=== PATIENT | female | born 1980 | race Caucasian/White ===

== ENCOUNTER → 2020-04-01 | Outpatient (CLI) | payer OTHER ==
--- NOTE | 2020-04-01 14:32 | XR ---
EXAMINATION TYPE: XR chest 2V DATE OF EXAM: 04/01/2020 COMPARISON: 04/23/2010 HISTORY: 39-year-old female tobacco abuse, COPD TECHNIQUE: Frontal and lateral views FINDINGS: The cardiomediastinal silhouette, aorta, and pulmonary vasculature are within normal limits. Hazy mid and lower lung densities relating to overlying soft tissue. No consolidation or pleural effusion see n. IMPRESSION: No acute cardiopulmonary process.
== END | disposition home or self-care (01) ==
LOC: RADXRMAIN 12:19
PROVIDERS: ATTEND Family Medicine
DX: J44.9 Chronic obstructive pulmonary disease, unspecified (principal); Z72.0 Tobacco use
CPT/HCPCS: 71046

== ENCOUNTER → 2022-11-16 | Outpatient (CLI) | payer OTHER ==
--- NOTE | 2022-11-16 16:50 | XR ---
EXAMINATION TYPE: XR shoulder complete LT, XR scapula LT DATE OF EXAM: 11/16/2022 4:41 PM CLINICAL INDICATION:Female, 42 years old with history of M25.512 M89.8X1; [facility] COMPARISON: None TECHNIQUE: The left shoulder was examined in AP, internally rotated and scapular Y projections. 2 views of the scapula were performed. FINDINGS: No evidence of acute osseous pathology, joint dislocation, or soft tissue swelling. The remaining por tions of the visualized chest are unremarkable. Scapula appears intact. Mild osteophyte formation the glenoid with hypertrophy changes of the distal clavicle and the acromion. IMPRESSION: 1. No acute osseous pathology. The shoulder and scapula appear intact. 2. Mild left shoulder degeneration.
--- NOTE | 2022-11-16 16:51 | XR ---
EXAMINATION TYPE: XR thoracic spine 2V DATE OF EXAM: 11/16/2022 4:41 PM CLINICAL INDICATION:Female, 42 years old with history of M25.512 M89.8X1; [facility] COMPARISON: None TECHNIQUE: 2 views of the thoracic spine in Frontal and lateral projections. FINDINGS: No evidence of acute fracture. There is scattered multilevel disk space narrowing without loss of ve rtebral body height. There is scoliosis alignment of the thoracic vertebral bodies. Scattered osteoph yte formation along the anterior and lateral aspects of the vertebral bodies. Neural foramen are stovall nt given limitations of this exam. Spinal canal appears patent. IMPRESSION: 1. No acute osseous pathology. 2. Degeneration changes of the spine. 3. Mild scoliosis.
== END | disposition home or self-care (01) ==
LOC: RADXRMAIN 16:22
PROVIDERS: ATTEND Family Medicine
DX: M89.8X1 Other specified disorders of bone, shoulder (principal); M41.84 Other forms of scoliosis, thoracic region; M19.012 Primary osteoarthritis, left shoulder; M47.814 Spondylosis without myelopathy or radiculopathy, thoracic region; M54.9 Dorsalgia, unspecified
CPT/HCPCS: 72070

== ENCOUNTER → 2023-07-05 | Outpatient (CLI) | payer OTHER ==
--- NOTE | 2023-07-07 14:14 | MM ---
Reason for Exam: Screening (asymptomatic). Patient History: Menarche at age 13. First Full-Term at age 23. Premenopausal. Paternal grandmother had breast cancer. Paternal aunt had breast cancer. Maternal grandmother had breast cancer. Risk Values: Edel 5 year model risk: 0.6%. NCI Lifetime model risk: 8.9%. Tissue Density: The breasts are almost entirely fatty. Findings: Analyzed By CAD. Right breast:There is a mass in the medial aspect of the right breast inferiorly that may have a fatty hilum. This measures up to 7 mm 9.8 cm in the nipple on MLO view and 9 point to summation nipple on CC view. Ultrasound recommended for confirmation of suspected lymph node. Left breast: There is no suspicious group of microcalcifications or new suspicious mass. Overall Assessment: Incomplete: need additional imaging evaluation, BI-RAD 0 Management: Diagnostic Breast Ultrasound of the right breast. [facility] will attempt to contact patient to return for supplemental views and ultrasound if indicated. Patient should continue monthly self-breast exams. A clinical breast exam by your physician is recommended on an annual basis. This exam should not preclude additional follow-up of suspicious palpable abnormalities. Note on Edel scores and lifetime risk: 1. A Edel score greater than 3% is considered moderate risk. If this is the case, consider specialist referral to assess eligibility for a risk reducing agent. 2. If overall lifetime risk for the development of breast cancer is 20% or higher, the patient may qualify for future screening with alternating mammogram and breast MRI. Electronically signed and approved by: Scott Warren DO
== END | disposition home or self-care (01) ==
LOC: RADMAMWWP 15:24
PROVIDERS: ATTEND Family Medicine
DX: Z12.31 Encounter for screening mammogram for malignant neoplasm of breast (principal); Z80.3 Family history of malignant neoplasm of breast
CPT/HCPCS: 77067

== ENCOUNTER → 2023-07-12 | Outpatient (CLI) | payer OTHER ==
--- NOTE | 2023-07-12 17:54 | USB ---
Reason for Exam: Additional evaluation requested from abnormal screening. Patient History: Menarche at age 13. First Full-Term at age 23. Premenopausal. Paternal grandmother had breast cancer. Paternal aunt had breast cancer. Maternal grandmother had breast cancer. Risk Values: Edel 5 year model risk: 0.6%. NCI Lifetime model risk: 8.9%. Technique: Method: Targeted. Prior Study Comparison: 07/05/2023 Bilateral MG screening mammo w CAD, [facility]. Findings: The lower inner quadrant of the right breast, the axilla of the right breast and the retroareolar of the right breast were scanned. Targeted ultrasound medial right breast 4:00 position including scanning of the subareolar region and axilla. At the 4:00 position, 9 cm from the nipple, there is a heterogeneous circumscribed oval mass measuring 8 x 5 x 4 mm. Mammographic correlate. On image 2, it has the appearance of an intramammary lymph node. On other images, it is indeterminate. As the patient's mammogram was her baseline study, short interval follow-up is recommended to demonstrate stability. Overall Assessment: Probably benign, BI-RAD 3 Management: Diagnostic Mammogram of the right breast in 6 months. A clinical breast exam by your physician is recommended on an annual basis and results should be correlated with mammographic findings. This exam should not preclude additional follow-up of suspicious palpable abnormalities. Results were given to the patient verbally at the time of exam. Electronically signed and approved by: Mark Bailey M.D. Radiologist
== END | disposition home or self-care (01) ==
LOC: RADUSWWP 15:06
PROVIDERS: ATTEND Family Medicine
DX: N63.14 Unspecified lump in the right breast, lower inner quadrant (principal); R92.8 Other abnormal and inconclusive findings on diagnostic imaging of breast; Z80.3 Family history of malignant neoplasm of breast

== ENCOUNTER → 2024-03-02 | Outpatient (CLI) | payer OTHER ==
--- NOTE | 2024-03-02 09:45 | MM ---
Reason for Exam: Follow-up at short interval from prior study. Last screening mammogram was performed 8 month(s) ago. Patient History: Menarche at age 13. First Full-Term at age 23. Premenopausal. Paternal grandmother had breast cancer. Paternal aunt had breast cancer. Maternal grandmother had breast cancer. Risk Values: Edel 5 year model risk: 0.6%. NCI Lifetime model risk: 8.9%. Prior Study Comparison: 07/05/2023 Bilateral MG screening mammo w CAD, [facility]. Tissue Density: Right: There are scattered areas of fibroglandular density. Findings: Analyzed By CAD. The 7 mm nodule 4:00 right breast middle depth remains unchanged for 6 months. Ongoing short interval follow-up is recommended. Given stability, we continue to favor an intramammary lymph node. Otherwise, no significant change. Overall Assessment: Probably benign, BI-RAD 3 Management: Diagnostic Mammogram of both breasts in 6 months. Total one-year follow-up right breast and annual exam of the left breast. Results were given to the patient verbally at the time of exam. Patient should continue monthly self-breast exams. A clinical breast exam by your physician is recommended on an annual basis. This exam should not preclude additional follow-up of suspicious palpable abnormalities. Note on Edel scores and lifetime risk: 1. A Edel score greater than 3% is considered moderate risk. If this is the case, consider specialist referral to assess eligibility for a risk reducing agent. 2. If overall lifetime risk for the development of breast cancer is 20% or higher, the patient may qualify for future screening with alternating mammogram and breast MRI. [facility], , 03/02/2024 9:41 AM. Electronically signed and approved by: Mark Bailey M.D. Radiologist
== END | disposition home or self-care (01) ==
LOC: RADMAMWWP 09:24
PROVIDERS: ATTEND Family Medicine
DX: R92.8 Other abnormal and inconclusive findings on diagnostic imaging of breast (principal); Z80.3 Family history of malignant neoplasm of breast
CPT/HCPCS: 77065; G0279; 77061